=== PATIENT | female | born 1950 | race Caucasian/White ===

== ENCOUNTER → 2018-04-02 | Day surgery (SDC) | payer MEDICARE ==
[~2018-04-02] MED LIST: APREPITANT 40 MG CAP; KETOROLAC TROMETHAMINE 30 MG/ML (IVP) VIAL IV PUSH; LACTATED RINGER'S 1000 ML INJ 1,000 ML; MIDAZOLAM HCL 2 MG/2 ML VIAL; ONDANSETRON HCL 4 MG/2 ML VIAL IV PUSH; PROPOFOL 200 MG/20 ML AMP IV
== END | disposition home or self-care (01) ==
LOC: ESDC 06:18
DX: R51 Headache (principal); H53.9 Unspecified visual disturbance
CPT/HCPCS: 00352; 88304